=== PATIENT | female | born 1960 | race African-American/Black ===

== ENCOUNTER 2020-03-04 23:07 | Emergency (ER) | payer OTHER ==
[~2020-03-04] VITALS: Ht 170.1 cm; Wt 98.4 kg
[2020-03-04] MEDS ORDERED: ASPIRIN CHEWABL81 MG PO (23:25)
[2020-03-04] MEDS ORDERED: ADEMPAS2.5 M1 PO (23:25)
[2020-03-04] MEDS ORDERED: BUMETANIDE2 MG PO (23:26)
[2020-03-04] MEDS ORDERED: Coumadin10 MG PO (23:28)
[2020-03-04] MEDS ORDERED: Coumadin7.5 MG PO (23:29)
[2020-03-04] MEDS ORDERED: ARNUITY ELLIPT50 MCG INH (23:30)
[2020-03-04 23:31] LABS: BASO # 0.1 10*3/uL (0.0-0.1); BASO % 0.4 % (0.0-1.0); EOS # 1.1 10*3/uL (0.0-0.4); EOS % 5.7 % (1.0-4.0); HEMATOCRIT 34.8 % (37.0-47.0); LYMPH # 3.2 10*3/uL (1.3-4.4); LYMPH % 16.9 % (27.0-41.0); MEAN CELL VOLUME 85.3 fl (81.0-99.0); MEAN CORPUSCULAR HGB CONC 30.5 g/dl (33.0-37.0); MONO # 1.2 10*3/uL (0.1-1.0); MONO % 6.6 % (3.0-9.0); NEUT # 13.2 10*3/uL (2.3-7.9); NEUT % 70.1 % (47.0-73.0); PLATELET COUNT AUTOMATED 339 10*3/uL (130-400); RED BLOOD COUNT 4.08 10*6/uL (4.10-5.10); RED CELL DISTRI WIDTH 13.2 % (0-14.5); WHITE BLOOD COUNT 18.8 10*3/uL (4.8-10.8)
[2020-03-04] MEDS ORDERED: MECLIZINE HYD12.5 MG PO (23:31)
[2020-03-04] MEDS ORDERED: SEMGLEE100 UNIT/1 SQ (23:31)
[2020-03-04] MEDS ORDERED: TOPROL XL50 M1 PO (23:32)
[2020-03-04] MEDS ORDERED: GLUCOPHAGE1000 MG PO (23:32)
[2020-03-04] MEDS ORDERED: POTASSIUM CHLO20 ME3 PO (23:33)
[2020-03-04] MEDS ORDERED: SIMVASTATIN80 MG PO (23:34)
[2020-03-04] MEDS ORDERED: XANAX1 MG PO (23:34)
[2020-03-04] MEDS ORDERED: PRILOSEC20 M1 PO (23:34)
[2020-03-04] MEDS ORDERED: Fioricet 325 MG1 TAB PO (23:35)
[2020-03-04 23:48] LABS: ACT PARTIAL THROMBO TIME 27.3 SECONDS (20.0-32.1); INTERNATIONAL NORM RATIO 1.5 (2.0-3.5)
[2020-03-04 23:55] LABS: ALBUMIN 3.6 gm/dl (3.1-4.5); ALKALINE PHOSPHATASE 117 U/L (45-117); BUN 13 mg/dl (7-24); CHLORIDE 102 mmol/L (98-107); CREATININE 0.74 mg/dL (0.55-1.02); POTASSIUM 3.3 mmol/L (3.5-5.1); SGOT/AST 18 IU/L (3-35); SGPT/ALT 27 U/L (12-78); SODIUM 141 mmol/L (136-145); TOTAL PROTEIN 7.5 gm/dL (6.4-8.2)
[2020-03-05] LABS: TROPONIN I < 0.015 ng/ml (<0.045)
== END 2020-03-05 01:06 | disposition home or self-care (01) ==
LOC: ED 23:07
PROVIDERS: Internal Medicine
DX: R07.9 Chest pain, unspecified (principal); D64.9 Anemia, unspecified; D72.829 Elevated white blood cell count, unspecified; Z79.899 Other long term (current) drug therapy; Z79.82 Long term (current) use of aspirin